=== PATIENT | male | born 1975 | race Caucasian/White ===

== ENCOUNTER 2019-10-10 20:17 | Emergency (ER) | payer MEDICAID, SELFPAY ==
[2019-10-10 20:20] VITALS: BP 143/87; PULSE 64; RESP 18; TEMP 36.5; O2SAT 98
--- NOTE | 2019-10-10 20:47 | ED.GENADUL_ITS ---
Discharge Plan Disposition Patient Disposition: HOME Condition: Good Discharge Details Chief Complaint: Sorethroat Clinical Impression: Strep pharyngitis Primary Care Provider: Denzel Akers ED Provider: Mansi Allison Home Meds and New Rx's Prescriptions: Continued ascorbic acid (vitamin C) [Vitamin C] 1,000 mg Tablet RF: 0 B Complex 100 085-5-313-2-2 mg/mL Solution RF: 0 Glucosamine Chondroitin 550-30-1 mg Capsule PO RF: 0 Discharge Instructions Instructions: Cephalexin (By mouth), Strep Throat (ED) Additional Instructions: Encourage water intake. Tylenol and ibuprofen as needed for discomfort. Please take the antibiotics as prescribed. Even if symptoms improve, please take the entire course. Develop difficulty breathing, shortness of breath, inability stay hydrated or other new/worsening symptoms please seek care urgently once again. Please follow-up with primary care at the end of the week if not improved. Please replace your toothbrush in 48 hours. Referrals: Denzel Akers [Primary Care Provider] - Discharge Data Discharge Date/Time-TO BE ENTERED AT DEPARTURE: 10/10/19 21:20 Medical Decision Making Patient is a 44 year old male presenting today with c/c of recurrent sore throat. States that he was recently treated for strep throat. Was successfully treated with Augmentin but had recurrent symptoms over the past few days. Denies fevers/chills. Has pain with swallowing but is not having difficulty with hydration. Did not change his toothbrush after his recent antibiotic treatment. On exam, patient has bilateral tonsillar swelling and erythema. No trismus, c hange in voice, swelling under tongue, evidence of abscess. Patient is nontoxic. Positive strep Will treat again, advised he change his toothbrush. Encouraged hydration. Tylneol and/or Ibuprofen as needed for discomfort. He was given return precautions. Will f/u with PCP in one week if not improved. All questions and concerns were addressed, he is in agreement with this plan. HPI General Mode of arrival: ambulatory . Date/Time Provider Initiated Documentation: 10/10/19 20:34 . Limitations to Documentation: no limitations . Information obtained by: patient and RN notes reviewed . History of Present Illness 44 year old M presents to the emergency department with the chief complaint of sore throat, described as mild, with intensity rated at 3. Quality is described as burning, and is localized to the mouth. Patient reports no radiation. Patient started experiencing this day(s) (3) and it has been constant. No relieving factors improve symptom(s), No exacerbating factors reported . Patient notes no other symptoms.. Patient did receive the following treatments prior to arrival, none Related Data Home Medications Medication Instructions Recorded Confirmed B Complex 100 ml 10/10/19 Glucosamine Chondroitin cap PO 10/10/19 ascorbic acid (vitamin C) [Vitamin 10/10/19 C] Allergies Allergy/AdvReac Type Severity Reaction Status Date / Time morphine Allergy Unverified 10/10/19 20:27 General Stated Complaint: Sorethroat SOFIE: 4 Review of Systems Constitutional Constitutional: Reports as per HPI and Denies headache(s) Eyes Eyes: Reports as per HPI, Denies eye discharge and Denies irritation ENT Ears, Nose, Mouth, and Throat: Reports as per HPI and Denies headache(s) Cardiovascular Cardiovascular: Reports as per HPI, Denies chest pain and Denies dyspnea Respiratory Respiratory: Reports as per HPI and Denies dyspnea Gastrointestinal Gastrointestinal: Reports as per HPI, Denies abdominal pain, Denies change in bowel habits, Denies nausea and Denies vomiting Integumentary/Breasts Skin/Breast: Reports as per HPI and Denies rash Neurologic Neurologic: Reports as per HPI and Denies headache(s) COUNTS INCLUDE 234 BEDS AT THE [facility] Social History (System 05/30/18 @ 14:00 by Leela Montiel) Smoking/Tobacco Use Status: Never Alcohol Intake: current Alcohol Intake frequency: a few times a month Drug use: Never Substance use type: does not use Do you feel safe at home: Yes Do you feel safe in your relationship?: Yes Exam Const General: cooperative, healthy appearing, comfortable, no acute distress, well developed and well groomed Nutritional Appearance: average body habitus and well nourished Orientation: alert and awake [facility] Head: normal to inspection, normocephalic and atraumatic Ears: hearing grossly normal bilaterally, external ears normal and TM's normal bilaterally General nose exam: external nose normal and nares normal Face and sinus: normal facial exam, sinuses nontender and face symmetric Mouth: oral mucosae normal, lip normal, tongue normal, oropharynx normal and moist mucous membranes Teeth and gingiva: dentition normal Throat: uvula midline, abnormal tonsil bilaterally erythema and hypertrophy 1+; no exudates, no peritonsillar masses, uvula not displaced and no uvular edema Eyes General: appearance normal, both eyes and all related structures Neck Neck: normal visual inspection, full ROM, no meningeal signs and lymphadenopathy Resp Effort & Inspection: normal respiratory effort, able to speak in complete sentences and no respiratory distress Auscultation: clear to auscultation bilaterally, no rales, no rhonchi and no wheezes Cardio Rate: regular rate Rhythm: regular rhythm Heart Sounds: S1 normal and S2 normal Skin General skin exam: no rashes or lesions noted Neuro General: alert and awake Cognition: normal cognition Speech: speech normal Gait: normal gait Psych Appearance: grossly normal and well kempt Mental Status: mental status grossly normal Speech and Movement: speech and movement normal Course Vital Signs Vital signs: Vital Signs Temperature 36.5 C 10/10/19 20:20 Pulse 64 10/10/19 20:20 Respiratory Rate 18 10/10/19 20:20 Blood Pressure 143/87 H 10/10/19 20:20 Pulse Oximetry 98 10/10/19 20:20 Temperature 36.5 C 10/10/19 20:20 Temperature Source Skin 10/10/19 20:20 Pulse 64 10/10/19 20:20 Respiratory Rate 18 10/10/19 20:20 Respiratory Effort Non-Labored 10/10/19 20:24 Blood Pressure 143/87 H 10/10/19 20:20 Blood Pressure Position Sitting 10/10/19 20:20 Pulse Oximetry 98 10/10/19 20:20 Oxygen Delivery Method Room Air 10/10/19 20:20 Oxygen Flow Rate 0 10/10/19 20:20 Pain Level 3 10/10/19 20:20 Lab/Test Results Lab/Test Results: POC Strep Test-THOM(Rapid) Start: 10/10/19 20:30 Freq: .Rapid Strep Test Status: Active Protocol: Document 10/10/19 20:35 BS (Rec: 10/10/19 20:35 BS [id number]) Strep test-THOM(Rapid)-POC POC-Strep test-THOM (Rapid) Positive POC-Strep test-THOM (Rapid) Positive
[2019-10-10 21:16] VITALS: BP 143/87; PULSE 64; RESP 18; TEMP 36.5; O2SAT 98
[2019-10-10] MEDS: Cephalexin 500 MG CAP 1000 MG PO (21:16)
== END 2019-10-10 21:20 | disposition home or self-care (01) ==
LOC: ER 21:13
PROVIDERS: Emergency Provider Physician Assistant; PCP Internal Medicine
DX: J02.0 Streptococcal pharyngitis (principal)
CPT/HCPCS: 87880; 99283